=== PATIENT | female | born 1950 | race Hispanic/Latino ===

== ENCOUNTER 2020-06-08 14:24 | Emergency (ER) | payer OTHER, SELFPAY ==
[2020-06-08 14:31] VITALS: PULSE 93; O2SAT 100
[2020-06-08 14:32] VITALS: BP 155/70; PULSE 92; O2SAT 99
[2020-06-08 14:34] VITALS: BP 155/70; PULSE 92; RESP 11; TEMP 36.7; O2SAT 99; BMI 25.6
--- NOTE | 2020-06-08 14:46 | PC.NURSE ---
Croatian speaking. Daughter in room assisting. Reports palpitations worse with exertion/deep breathing.
[2020-06-08 15:00] VITALS: PULSE 67; O2SAT 98
[2020-06-08 15:01] VITALS: BP 146/63; PULSE 69; RESP 22; O2SAT 98
--- NOTE | 2020-06-08 15:14 | ED_ITS ---
HPI - Arrhythmia/Palpitations <Ludmila CaliMIA - Last Filed: 06/08/20 15:37> General Chief Complaint: Arrhythmia/Palpitations Stated Complaint: palpitations,medication refill Time Seen by Provider: 06/08/20 14:27 Source: patient Mode of arrival: Ambulatory Limitations: no limitations History of Present Illness HPI narrative: 69yo female with a history of HTN, HLD, and palpitations, pr esents to the ED with her daughter for refill on medications and palpitations. She is currently staying with her daughter as she is from [place] and COVID-19 is severe in her home town. Her daughter wants her to stay another month until she gets her 2nd vaccine, they requesting a refill on medications for the next month. Patient has a list: She takes losartan, montelukast, rosuvastatin, and verapamil. Patient reports she has had a history of palpitations, she has been seen and evaluated for this recently and [place]. Patient was told when palpitations arise she can take 2 pills of her verapamil. Patient states she noticed palpitations yesterday and today. She states they are the same to the palpitations that she gets in the past. She has not taken an extra dose of verapamil as she was scared she would run on for medications. She denies any other symptoms at this time such as chest pain, shortness of breath, cough, fevers, nausea, vomiting, diarrhea, or any other concerns. She does not have any palpitations at this time. Daughter states that they do not want a lot of tests due to the fact that she only has travel insurance in her scared about cost. We extensively discussed the workup for palpitations usually includes an EKG, chest x-ray, and laboratory work to rule out electrolyte the abnormalities, elevated troponin, and thyroid involvement. Daughter states that this has been done previously in [place]. We discussed the EKG does not show any ectopy or electrical. Discussed the it was reassuring that patient's palpitations are exactly the same as they have been over the past few years, however, cannot rule out other cardiac etiology without laboratory test. Shared decision making was used to discussed risks and benefits to lab work and to reach the decision that daughter inpatient preferred to defer laboratory tests and chest x-ray at this time. She will take an extra dose of her verapamil medication in return emergency department for any new or worsening symptoms. Related Data Previous Rx's Medication Instructions Recorded losartan 50 mg PO BID 30 Days #60 tab 06/08/20 montelukast [Singulair] 10 mg PO DAILY 30 Days #30 tab 06/08/20 rosuvastatin 10 mg PO DAILY 20 Days #20 tab 06/08/20 verapamil 80 mg PO DAILY #60 tab 06/08/20 Review of Systems <MIA Paris - Last Filed: 06/08/20 15:37> Review of Systems Narrative: REVIEW OF SYSTEMS: GENERAL: Denies fevers. HENT: No head trauma or hearing loss. CARDIOVASCULAR: No chest pain or syncope. RESPIRATORY: No shortness of breath. No cough. GASTROINTESTINAL: No nausea or vomiting. MUSCULOSKELETAL: No injury. INTEGUMENTARY: No rash. Patient History <MIA Paris - Last Filed: 06/08/20 15:37> Medical History HTN (hypertension) Social History Smoking Status: Former smoker Smoking Status: Former smoker alcohol intake frequency: a few times a week Substance Use Type: does not use Exam <MIA Paris - Last Filed: 06/08/20 15:37> Initial Vital Signs Initial Vital Signs: Vital Signs Pulse Rate 93 H 06/08/20 14:31 Pulse Oximetry 100 06/08/20 14:31 PHYSICAL EXAMINATION: GENERAL: Awake and alert. No distress. HENT: Normocephalic, atraumatic. EYES: Conjunctiva pink, sclera white, no periorbital swelling. No discharge. CHEST: Normal to inspection and without deformities. CARDIOVASCULAR: S1 and S2 sounds normal. Regular rate and rhythm, no murmurs, clicks, or bruits. RESPIRATORY: Normal respiratory rate, trachea midline, airway patent. No stridor, nasal flaring or accessory muscle use. Able to speak in full sentences. Lungs are clear in all millard without wheeze, rhonchi, or crackles. MUSCULOSKELETAL: Normal gait and coordination. Equal tone and mass bilaterally. EXTREMITIES: Moves all extremities. SKIN: Warm, dry, soft, appropriate color for ethnicity. No lesions, rashes, or wounds to visualized areas. NEURO: Alert and Oriented X 3. Good coordination. No ataxia or cognitive issues. PSYCH: Appropriate affect and mood. <Piero Kinsey DO - Last Filed: 06/09/20 07:16> Initial Vital Signs Initial Vital Signs: Vital Signs Pulse Rate 93 H 06/08/20 14:31 Pulse Oximetry 100 06/08/20 14:31 Course <MIA Paris - Last Filed: 06/08/20 15:37> Course Course Narrative: Extensively discussed conversation about recommended further testing for palpitations which includes x-ray and labs, see HPI note for details. Orders Ordered: ED Orders 06/08/20 14:42 EKG-12 Lead Stat Consultations Consultation #1: Discussed patient with Dr. Kinsey Vital Signs Vital signs: Vital Signs - 8 hr 06/08/20 14:34 Temperature 98.1 F Pulse Rate 92 H Respiratory Rate 11 L Blood Pressure 155/70 H Pulse Oximetry 99 <Piero Kinsey DO - Last Filed: 06/09/20 07:16> Orders Ordered: ED Orders 06/08/20 14:42 EKG-12 Lead Stat Vital Signs Vital signs: Vital Signs - 8 hr 06/08/20 14:34 Temperature 98.1 F Pulse Rate 92 H Respiratory Rate 11 L Blood Pressure 155/70 H Pulse Oximetry 99 MDM - Arrhythmia/Palpitations <MIA Paris - Last Filed: 06/08/20 15:37> Medical Records Attestation: I reviewed the patient's medical records. Lab Data Attestation: I reviewed the patient's lab results. ECG Data Interpretation: 1433: Sinus rhythm, rate 79, PA interval 126, QTC 447. No ST elevation or ST depression. No ectopy. EKG also viewed by Dr. Kinsey. [facility] Narrative Medical decision making narrative: 69-year-old female with a history of hypertension, HLD, and palpitations presents emergency department with her daugh ter mainly for refill medications. She does states that she has been having palpitations the past 2 days which she has a history of. She usually takes 2 pills of rapid male as instructed by her doctor but has not done this the past 2 days as she is afraid she may ran out of her medications. She is currently staying with her daughter right now as COVID-19 a significant in her hometown in [place]. Patient anticipated to stay until June but will need to stay 1 month longer due to prolonged COVID concerns. I suspect patient's palpitations are most likely benign and appear to be consistent with her history. Less concern for ACS given lack of chest pain, change in symptoms, or EKG changes. Less concern for electrolyte changes given lack of EKG changes or other symptoms. No concern for illness at this time due to lack of cough, shortness of breath, fevers, tachycardia. Less concern for PE due to lack of shortness of breath, cough, or any other concerns. I discussed with patient and and daughter that laboratory work and chest x-ray are recommended for complete workup of palpitations. However, after much discussion, they decided to forego testing due to cost. We discussed that morena jorgensen's symptoms were reassuring that they were similar to her previous episodes over the past few years. She did not take his 2nd dose of for optimal and was instructed to do so. She was given very strict return precautions for any new or worsening symptoms. Patient agreed to plan of care verbalized understanding. Discharge Plan Departure Patient Disposition: Home Clinical Impression: Medication refill, Palpitations Instructions: DI for Palpitations Activity Restrictions/Additional Instructions: Thank you for entrusting me with your care today. As discussed, your EKG is non- remarkable. Again I cannot guarantee that electrolytes, thyroid, or cardiac enzymes are normal without lab tests. However, given the symptoms are consistent with symptoms in the past, likelihood of this being something serious is very low. As we discussed, you opted to defer lab tests at this time. Please return to the emergency department for any new or worsening symptoms including pain, worsening palpitations, shortness of breath, fevers, or any other concerns. Prescriptions: New verapamil 80 mg tablet 80 mg PO DAILY Qty: 60 RF: 0 losartan 50 mg tablet 50 mg PO BID 30 Days Qty: 60 RF: 0 montelukast [Singulair] 10 mg tablet 10 mg PO DAILY 30 Days Qty: 30 RF: 0 rosuvastatin 10 mg tablet 10 mg PO DAILY 20 Days Qty: 20 RF: 0 <Piero Kinsey DO - Last Filed: 06/09/20 07:16> [facility] [place] Attestation: I was immediately available in the department for consultation. This documentation has been reviewed and I agree with assessment and plan. Supervised by Piero Kinsey DO
== END 2020-06-08 15:30 | disposition home or self-care (01) ==
PROVIDERS: Emergency Provider Nurse Practitioner
DX: R00.2 Palpitations (principal); Z76.0 Encounter for issue of repeat prescription; I10 Essential (primary) hypertension
CPT/HCPCS: 93005; 93010; 99283